=== PATIENT | female | born 1960 | race Caucasian/White ===

== ENCOUNTER 2017-10-13 15:54 | Emergency (ER) | payer OTHER ==
[~2017-10-13] VITALS: Ht 167.6 cm; Wt 90.7 kg
[2017-10-13 15:15] VITALS: BP 122/63
[2017-10-13] MEDS ORDERED: DiphenhydrAMINE 50mg/ml Inj IVP ONE (16:30)
[2017-10-13] MEDS ORDERED: Solu-MEDROL 125mg Inj IVP ONE (16:30)
[2017-10-13] MEDS ORDERED: Metoclopramide 10mg/2ml Inj IVP ONE (16:30)
[2017-10-13 17:10] VITALS: BP 135/85
[2017-10-13] MEDS ORDERED: EPIPEN 2-P0.3 MG/0.3 IM (17:41)
[2017-10-13] MEDS ORDERED: DIPHENHYDRAMINE25 M1 ORAL (17:41)
[2017-10-13] MEDS ORDERED: PREDNISONE20 MG ORAL (17:41)
[2017-10-13 17:47] VITALS: BP 135/85
--- NOTE | 2017-10-13 19:34 | Emergency Room Report ---
History of Present Illness General Chief Complaint: Allergic Reaction Source: Patient, EMS Present Illness HPI 57-year-old female presents ED for evaluation. Patient brought in by EMS. Patient states that she ate some cashews today. States that she does have history to hazelnuts and other nuts. States that she felt some itching and states that her blood pressure felt low. Was given IV fluids by EMS. Upon arrival blood pressure improved. Denies any tongue swelling or throat swelling. Denies any shortness of breath. No other aggravating relieving factors. Denies any other associated symptoms Allergies: Coded Allergies: NUT - UNSPECIFIED (Verified Allergy, Severe, 10/13/17) CAMPHOR (Verified Allergy, Unknown, 10/13/17) CINNAMON (Verified Allergy, Unknown, 10/13/17) Izzy Nut (Verified Allergy, Unknown, 10/13/17) MEPERIDINE (Verified Allergy, Unknown, 10/13/17) PHENOL (Verified Allergy, Unknown, 10/13/17) Patient History Past Medical History: none Past Surgical History: none Pertinent Family History: none Social History: Denies: smoking, alcohol use, drug use Now: No Immunizations: UTD Reviewed Nursing Documentation: PMH: Agreed; PSxH: Agreed Nursing Documentation-PMH Hx Hypertension: Yes Review of Systems All Other Systems: negative except mentioned in HPI Physical Exam Vital Signs Date Time Temp Pulse Resp B/P (MAP) Pulse Ox O2 Delivery O2 Flow Rate FiO2 10/13/17 15:09 98.4 65 18 90/68 100 Room Air 98.4 Sp02 EP Interpretation: reviewed, normal General Appearance: no apparent distress, alert, GCS 15, non-toxic Head: normocephalic, atraumatic Eyes: bilateral eye normal inspection, bilateral eye PERRL ENT: hearing grossly normal, normal pharynx, no angioedema, normal voice Neck: full range of motion, supple/symm/no masses Respiratory: chest non-tender, lungs clear, normal breath sounds, speaking full sentences Cardiovascular #1: regular rate, rhythm, no edema Cardiovascular #2: 2+ carotid (R), 2+ carotid (L), 2+ radial (R), 2+ radial (L) , 2+ dorsalis pedis (R), 2+ dorsalis pedis (L) Gastrointestinal: normal bowel sounds, non tender, soft, non-distended, no guarding, no rebound Rectal: deferred Genitourinary: normal inspection, no CVA tenderness Musculoskeletal: back normal, gait/station normal, normal range of motion, non- tender Neurologic: alert, oriented x3, responsive, motor strength/tone normal, sensory intact, speech normal Psychiatric: judgement/insight normal, memory normal, mood/affect normal, no suicidal/homicidal ideation Reflexes: 3+ bicep (R), 3+ bicep (L), 3+ tricep (R), 3+ tricep (L), 3+ knee (R) , 3+ knee (L) Skin: normal color, no rash, warm/dry, well hydrated Lymphatic: no adenopathy Medical Decision Making Diagnostic Impression: Primary Impression: Allergic reaction Qualified Codes: T78.40XA - Allergy, unspecified, initial encounter ER Course Hospital Course 57-year-old female presents to ED with low blood pressure, itchiness, after eating cashews Differential diagnoses include: allergic reaction, angioedema, anaphylaxis Clinical course Patient placed on stretcher. monitor tech. After initial history and physical, I ordered Solu-Medrol, Benadryl, Zantac, IV fluids Upon reassessment patient states she feels better. Patient observed here in ED on cardiac nurse specialist for some time. No signs of respiratory distress. Blood pressure normal. Patient's a for discharge. We'll prescribe Benadryl, steroids. I will also prescribe EpiPen i. I feel this is a highly complex case requiring extensive working including EKG/Rhythm strip, Xray/CT/US, Blood/urine lab work, repeat exams while in ED, and administration of strong opiates/narcotics for pain control, admission to hospital or close patient follow up. Diagnosis - allergic reaction Stable and discharged to home with prescriptions for epipien, prednisone, Benadryl. Followup with PMD. Return to ED if symptoms recur or worsen Last Vital Signs Date Time Temp Pulse Resp B/P (MAP) Pulse Ox O2 Delivery O2 Flow Rate FiO2 10/13/17 17:47 98.4 65 16 135/85 100 Room Air 98.4 Status: improved Disposition: HOME, SELF-CARE Condition: Stable Scripts Epinephrine (Epipen 2-Thuan) 0.3 Mg/0.3 Ml Auto.injct 0.3 MG IM ONCE, #1 EA Prov: Jose Condon MD 10/13/17 Prednisone* (PREDNISONE*) 20 Mg Tablet 40 MG ORAL DAILY, #10 TAB Prov: Jose Condon MD 10/13/17 Diphenhydramine Hcl* (DIPHENHYDRAMINE HCL*) 25 Mg Capsule 25 MG ORAL Q6H PRN for Itching for 5 Days, #30 CAP 0 Refills Prov: Jose Condon MD 10/13/17 Referrals: NOT CHOSEN IPA/,REFERRING (PCP) Patient Instructions: Anaphylactic Reaction, [id number] Jose Condon MD Oct 13, 2017 19:34
== END 2017-10-13 17:47 | disposition home or self-care (01) ==
LOC: EDBD 15:54 → EMR 16:47
DX: T78.40XA Allergy, unspecified, initial encounter (principal); X58.XXXA Exposure to other specified factors, initial encounter; I10 Essential (primary) hypertension; Z91.018 Allergy to other foods; Z88.8 Allergy status to other drugs, medicaments and biological substances
CPT/HCPCS: 96361; 96374; 96375; 99284; J1200; J2765; J2930; S0028